=== PATIENT | male | born 1990 | race Caucasian/White ===

== ENCOUNTER 2022-10-21 12:17 | Outpatient (CLI) | payer OTHER, SELFPAY ==
[2022-10-21 11:03] LABS: ALT 288 U/L (16-63); AST 110 U/L (15-37); Albumin 3.9 g/dL (3.4-5.0); Alkaline Phosphatase 87 U/L (46-116); Anion Gap 7.2 mmol/L (3-11); BUN 16 mg/dL (7-18); Bilirubin, Total 0.9 mg/dL (0.2-1.0); CO2 30.8 mmol/L (21.0-32.0); Calcium 9.5 mg/dL (8.5-10.1); Chloride 102 mmol/L (98-107); Estimated GFR 101.28 (mL/min/1.73m2); Glucose 97 mg/dL (74-106); Potassium 4.1 mmol/L (3.5-5.1); Sodium 140 mmol/L (136-145); TSH (W/Ref FT4) 2.46 uIU/mL (0.36-3.74); Total Protein 7.8 g/dL (6.4-8.2)
[2022-10-21 11:13] LABS: Hemoglobin A1C 5.2 % (<5.7)
[2022-10-22 10:05] LABS: HIV-1/2 Ag & Ab Screen Negative (Negative)
[2022-10-22 10:30] LABS: Hepatitis C Ab w Rflx HCV PCR Negative (Negative)
== END 2022-10-21 12:18 | disposition home or self-care (01) ==
PROVIDERS: Visit Provider Nurse Practitioner
DX: Z76.89 Persons encountering health services in other specified circumstances (principal); I10 Essential (primary) hypertension
CPT/HCPCS: 36415; 80053; 86803; 87389; 83036; 84443